=== PATIENT | female | born 1975 | race Caucasian/White ===

== ENCOUNTER → 2016-05-16 | Outpatient (CLI) | payer OTHER ==
[~2016-05-16] MED LIST: COPAXONE; GADOBUTROL 15 MMOL/15 ML (GADAVIST) VIAL IV ONE; HYDROCODONE; KCL20TCR; LIDOCAINE 1% 10 MG/ML 0.2 ML SYR (FOR IV START) ONE; MTC10T; PNT40TEC
--- NOTE | 2016-05-16 13:11 | Progress Note-Standard ---
Standard Progress Note Progress Notes/Assess & Plan Progress/Assessment & Plan 05/16/16 [id number] Called to MRI for difficult IV start. 24 g IV started in patient's right AC on second attempt. First attempt on patient's right foot infiltrated upon flushing. Opsite utilized to secure site. Report off to GLEN. MIRA ABAD CRNA May 16, 2016 13:11
--- NOTE | 2016-05-16 14:01 | Diagnostic Imaging Report ---
PROCEDURE: MR imaging of the brain with and without contrast. TECHNIQUE: Multiplanar, multisequence MR imaging of the brain was performed with and without contrast. 40 mL of Gadavist is administered intravenously. INDICATION: Multiple sclerosis. COMPARISON: No prior studies are available for comparison. FINDINGS: The diffusion sequence demonstrates no evidence of acute infarct or any diffusion restriction. There are multiple bilateral periventricular, deep and juxtacortical white matter T2 hyperintense lesions with numerous lesions that are confluent around the corpus callosum level perpendicular to the corpus callosum compatible with demyelinating lesions and the provided history of multiple sclerosis. There is a number of these lesions associated with T1 hypo-intense signal compatible with chronicity and associated encephalomalacia. There is no contrast enhancement in any of these lesions seen. There is no infratentorial lesion. The brainstem and the cerebellum appear unremarkable. The central vascular flow-voids appear grossly unremarkable. The pituitary gland is normal in size. No hyperkalemic or pineal region mass. No enhancing mass. There is a mucous retention cyst in the right maxillary sinus measuring 3 cm in size. No hydrocephalus. No extra-axial fluid collection is seen. IMPRESSION: Numerous supratentorial white matter lesions confluent in the corpus callosum and pericallosal white matter with multiple other juxtacortical lesions seen. No enhancing lesion. No infratentorial lesion is seen. The findings are compatible with the provided history of multiple sclerosis. Dictated by: Dictated on workstation # [id number]
== END ==
LOC: RAD 10:49
PROVIDERS: ATTEND Psychiatry & Neurology Neurology
DX: G35 Multiple sclerosis (principal)
CPT/HCPCS: 70553

== ENCOUNTER → 2016-10-15 | Outpatient (CLI) | payer OTHER ==
[~2016-10-15] MED LIST changes: -GADOBUTROL 15 MMOL/15 ML (GADAVIST) VIAL IV ONE; -LIDOCAINE 1% 10 MG/ML 0.2 ML SYR (FOR IV START) ONE
[2016-10-15 08:29] LABS: BASOPHILS # (AUTO) 0.1 10^3/uL (0.0-0.1); BASOPHILS % (AUTO) 1 % (0-10); EOSINOPHILS # (AUTO) 0.1 10^3/uL (0.0-0.3); EOSINOPHILS % (AUTO) 2 % (0-10); LYMPHOCYTES # (AUTO) 1.6 X 10^3 (1.0-4.0); LYMPHOCYTES % (AUTO) 18 % (12-44); MEAN CORPUSCULAR HEMOGLOBIN 27 PG (25-34); MEAN CORPUSCULAR HGB CONC 33 G/DL (32-36); MEAN CORPUSCULAR VOLUME 83 FL (80-99); MEAN PLATELET VOLUME 11.5 FL (7.4-10.4); MONOCYTES # (AUTO) 0.7 X 10^3 (0.0-1.0); MONOCYTES % (AUTO) 7 % (0-12); NEUTROPHILS # (AUTO) 6.5 X 10^3 (1.8-7.8); NEUTROPHILS % (AUTO) 73 % (42-75); PLATELET COUNT 268 10^3/uL (130-400); RED BLOOD COUNT 4.98 10^6/uL (4.35-5.85); RED CELL DISTRIBUTION WIDTH 14.2 % (10.0-14.5); WHITE BLOOD COUNT 8.9 10^3/uL (4.3-11.0)
[2016-10-15 08:50] LABS: ALBUMIN 3.9 GM/DL (3.2-4.5); BILIRUBIN,TOTAL 0.6 MG/DL (0.1-1.0); CALCIUM 9.3 MG/DL (8.5-10.1); CREATININE SERUM 1.03 MG/DL (0.60-1.30); ICTERUS 0.3 (-100-1.9); POTASSIUM 4.2 MMOL/L (3.6-5.0); TOTAL PROTEIN 7.1 GM/DL (6.4-8.2)
[2016-10-15 09:09] LABS: THYROID STIMULATING HORMONE 2.79 UIU/ML (0.35-4.94)
[2016-10-15 09:21] LABS: NEUTROPHILS % (MANUAL) 73 %
[2016-10-15 09:22] LABS: EOSINOPHILS % (MANUAL) 2 %; LYMPHOCYTES % (MANUAL) 16 %
== END ==
LOC: LAB 08:13
PROVIDERS: ATTEND Nurse Practitioner
DX: Z00.00 Encounter for general adult medical examination without abnormal findings (principal); Z13.6 Encounter for screening for cardiovascular disorders; I10 Essential (primary) hypertension; K21.9 Gastro-esophageal reflux disease without esophagitis; M19.90 Unspecified osteoarthritis, unspecified site; G35 Multiple sclerosis
CPT/HCPCS: 36415; 80053; 80061; 84443; 85007; 85027

== ENCOUNTER → 2016-12-16 | Outpatient (CLI) | payer OTHER ==
--- NOTE | 2016-12-16 11:32 | Diagnostic Imaging Report ---
INDICATION: Screening mammogram. COMPARISON: 11/20/2015. TECHNIQUE: Digital screening mammography was obtained with CAD. Three dimensional tomosynthesis was reviewed. FINDINGS: The breast tissue is primarily fatty. No masses or suspicious calcifications are identified. IMPRESSION: Stable screening mammogram. No malignancy. ACR BI-RADS Category 1: Negative. Result letter will be mailed to the patient. Note: At least 10% of breast cancer is not imaged by mammography. Dictated by: Dictated on workstation # [id number]
== END ==
LOC: RAD 08:06
PROVIDERS: ATTEND Nurse Practitioner
DX: Z12.31 Encounter for screening mammogram for malignant neoplasm of breast (principal)
CPT/HCPCS: 77067

== ENCOUNTER → 2017-10-13 | Outpatient (CLI) | payer OTHER ==
[2017-10-13 08:52] LABS: BASOPHILS # (AUTO) 0.1 10^3/uL (0.0-0.1); BASOPHILS % (AUTO) 2 % (0-10); EOSINOPHILS # (AUTO) 0.1 10^3/uL (0.0-0.3); EOSINOPHILS % (AUTO) 3 % (0-10); HEMATOCRIT 40 % (35-52); HEMOGLOBIN 14.1 G/DL (11.5-16.0); LYMPHOCYTES # (AUTO) 0.8 X 10^3 (1.0-4.0); LYMPHOCYTES % (AUTO) 20 % (12-44); MEAN CORPUSCULAR HEMOGLOBIN 30 PG (25-34); MEAN CORPUSCULAR HGB CONC 35 G/DL (32-36); MEAN CORPUSCULAR VOLUME 85 FL (80-99); MONOCYTES # (AUTO) 0.6 X 10^3 (0.0-1.0); MONOCYTES % (AUTO) 15 % (0-12); NEUTROPHILS # (AUTO) 2.4 X 10^3 (1.8-7.8); NEUTROPHILS % (AUTO) 62 % (42-75); PLATELET COUNT 189 10^3/uL (130-400); RED BLOOD COUNT 4.72 10^6/uL (4.35-5.85); RED CELL DISTRIBUTION WIDTH 14.2 % (10.0-14.5); WHITE BLOOD COUNT 3.8 10^3/uL (4.3-11.0)
[2017-10-13 09:12] LABS: ALANINE AMINOTRANSFERASE 121 U/L (0-55); ALBUMIN 3.6 GM/DL (3.2-4.5); ALKALINE PHOSPHATASE 81 U/L (40-136); BILIRUBIN,TOTAL 0.7 MG/DL (0.1-1.0); BUN/CREATININE RATIO 7; CARBON DIOXIDE 23 MMOL/L (21-32); CHLORIDE 108 MMOL/L (98-107); CHOLESTEROL 156 MG/DL (< 200); CREATININE SERUM 0.97 MG/DL (0.60-1.30); GFR ESTIMATED > 60; GLUCOSE 104 MG/DL (70-105); HDL CHOLESTEROL 37 MG/DL (40-60); SODIUM 139 MMOL/L (135-145); TOTAL PROTEIN 6.5 GM/DL (6.4-8.2); TRIGLYCERIDES 199 MG/DL (<150); VLDL CHOLESTEROL 40 MG/DL (5-40)
== END ==
LOC: LAB 08:37
PROVIDERS: ATTEND Nurse Practitioner
DX: Z00.00 Encounter for general adult medical examination without abnormal findings (principal)
CPT/HCPCS: 36415; 80053; 80061; 84443; 85025

== ENCOUNTER 2017-11-12 08:11 | Outpatient (RCR) | payer OTHER ==
[2017-11-12 08:54] LABS: BILIRUBIN,DIRECT 0.2 MG/DL (0.0-0.3); BILIRUBIN,INDIRECT 0.2 MG/DL; BILIRUBIN,TOTAL 0.4 MG/DL (0.1-1.0); TOTAL PROTEIN 6.9 GM/DL (6.4-8.2)
== END 2017-11-25 | disposition home or self-care (01) ==
LOC: LAB 08:11
PROVIDERS: ATTEND Psychiatry & Neurology Neurology
DX: G35 Multiple sclerosis (principal)
CPT/HCPCS: 36415; 80076

== ENCOUNTER 2017-12-16 08:53 | Outpatient (RCR) | payer OTHER ==
[2017-12-16 09:32] LABS: BILIRUBIN,DIRECT 0.2 MG/DL (0.0-0.3); BILIRUBIN,INDIRECT 0.2 MG/DL; BILIRUBIN,TOTAL 0.4 MG/DL (0.1-1.0); TOTAL PROTEIN 6.6 GM/DL (6.4-8.2)
== END 2017-12-26 | disposition home or self-care (01) ==
LOC: LAB 08:53
PROVIDERS: ATTEND Psychiatry & Neurology Neurology
DX: G35 Multiple sclerosis (principal)
CPT/HCPCS: 36415; 80076

== ENCOUNTER → 2018-02-27 | Outpatient (CLI) | payer OTHER ==
--- NOTE | 2018-02-27 17:26 | Diagnostic Imaging Report ---
INDICATION: Routine screening. Comparison is made with prior mammograms from 12/16/2016 and 11/20/2015. 2-D and 3-D bilateral screening mammography was performed with computer-aided detection (CAD) system. FINDINGS: Scattered fibroglandular densities are identified bilaterally. The parenchymal pattern is stable. No mass or malignant-appearing microcalcifications are seen. The axillae are unremarkable. IMPRESSION: No mammographic features suspicious for malignancy are identified. ACR BI-RADS Category 1: Negative. Result letter will be mailed to the patient. Note: At least 10% of breast cancer is not imaged by mammography. Dictated by: Dictated on workstation # [id number]
== END ==
LOC: RAD 08:37
PROVIDERS: ATTEND Nurse Practitioner
DX: Z12.31 Encounter for screening mammogram for malignant neoplasm of breast (principal)
CPT/HCPCS: 77067

== ENCOUNTER → 2018-04-09 | Outpatient (CLI) | payer OTHER ==
[2018-04-09 08:47] LABS: ALBUMIN 3.9 GM/DL (3.2-4.5); BILIRUBIN,TOTAL 0.4 MG/DL (0.1-1.0); CALCIUM 9.3 MG/DL (8.5-10.1); CREATININE SERUM 1.01 MG/DL (0.60-1.30); POTASSIUM 4.1 MMOL/L (3.6-5.0); TOTAL PROTEIN 6.7 GM/DL (6.4-8.2)
== END ==
LOC: LAB 08:15
PROVIDERS: ATTEND Internal Medicine
DX: R74.8 Abnormal levels of other serum enzymes (principal)
CPT/HCPCS: 36415; 80053; 80061

== ENCOUNTER 2018-12-31 10:09 | Outpatient (RCR) | payer OTHER | END 2019-01-03 | disposition home or self-care (01) | DX: R10.31 Right lower quadrant pain (principal); R10.12 Left upper quadrant pain ==

== ENCOUNTER 2019-01-13 10:36 | Outpatient (RCR) | payer OTHER | END 2019-04-13 | disposition home or self-care (01) | DX: R10.31 Right lower quadrant pain (principal); R10.12 Left upper quadrant pain ==

== ENCOUNTER → 2019-03-03 | Outpatient (CLI) | payer OTHER ==
--- NOTE | 2019-03-03 09:03 | Diagnostic Imaging Report ---
INDICATION: Screening. TECHNIQUE: The current study was also evaluated with a Computer Aided Detection (CAD) system. 3D Tomographic imaging was also performed. 3D tomosynthesis was performed and reviewed. COMPARISON: 02/27/2018, 12/16/2016, and 11/20/2015. FINDINGS: There are scattered fibroglandular densities bilaterally. There is no dominant mass, spiculated lesion, or suspicious calcification identified. The skin, nipples, and axillae are unremarkable. IMPRESSION: Negative. ACR BI-RADS Category 1: Negative. Result letter will be mailed to the patient. Note: At least 10% of breast cancer is not imaged by mammography. Dictated by: Dictated on workstation # [id number]
== END ==
LOC: RAD 07:31
PROVIDERS: ATTEND Obstetrics & Gynecology
DX: Z12.31 Encounter for screening mammogram for malignant neoplasm of breast (principal)
CPT/HCPCS: 77067

== ENCOUNTER → 2019-06-18 | Outpatient (CLI) | payer OTHER ==
[2019-06-18 08:22] LABS: BASOPHILS # (AUTO) 0.1 10^3/uL (0.0-0.1); BASOPHILS % (AUTO) 1 % (0-10); EOSINOPHILS # (AUTO) 0.1 10^3/uL (0.0-0.3); EOSINOPHILS % (AUTO) 2 % (0-10); HEMATOCRIT 42 % (35-52); HEMOGLOBIN 13.9 G/DL (11.5-16.0); LYMPHOCYTES # (AUTO) 1.4 X 10^3 (1.0-4.0); LYMPHOCYTES % (AUTO) 23 % (12-44); MEAN CORPUSCULAR HEMOGLOBIN 29 PG (25-34); MEAN CORPUSCULAR HGB CONC 33 G/DL (32-36); MEAN CORPUSCULAR VOLUME 89 FL (80-99); MEAN PLATELET VOLUME 11.8 FL (7.4-10.4); MONOCYTES # (AUTO) 0.5 X 10^3 (0.0-1.0); MONOCYTES % (AUTO) 8 % (0-12); NEUTROPHILS # (AUTO) 3.9 X 10^3 (1.8-7.8); NEUTROPHILS % (AUTO) 66 % (42-75); PLATELET COUNT 233 10^3/uL (130-400); RED CELL DISTRIBUTION WIDTH 13.7 % (10.0-14.5); WHITE BLOOD COUNT 5.9 10^3/uL (4.3-11.0)
[2019-06-18 08:46] LABS: ALBUMIN 3.8 GM/DL (3.2-4.5); BILIRUBIN,TOTAL 0.5 MG/DL (0.1-1.0); CALCIUM 9.3 MG/DL (8.5-10.1); CREATININE SERUM 1.06 MG/DL (0.60-1.30); POTASSIUM 4.1 MMOL/L (3.6-5.0); TOTAL PROTEIN 6.6 GM/DL (6.4-8.2)
== END ==
LOC: LAB 08:03
PROVIDERS: ATTEND Nurse Practitioner
DX: Z00.00 Encounter for general adult medical examination without abnormal findings (principal)
CPT/HCPCS: 36415; 80053; 80061; 84443; 85025

== ENCOUNTER → 2019-09-21 | Outpatient (CLI) | payer OTHER ==
--- NOTE | 2019-09-21 09:42 | Diagnostic Imaging Report ---
INDICATION: Fall. 3 views of the left wrist were obtained FINDINGS: The alignment is normal. There is no fracture or dislocation. Soft tissues are unremarkable. IMPRESSION: No acute fracture or dislocation. Dictated by: Dictated on workstation # [id number]
== END ==
LOC: RAD 08:59
PROVIDERS: ATTEND Nurse Practitioner
DX: M25.532 Pain in left wrist (principal); W19.XXXA Unspecified fall, initial encounter
CPT/HCPCS: 73110

== ENCOUNTER → 2020-03-06 | Outpatient (CLI) | payer OTHER ==
--- NOTE | 2020-03-06 11:40 | Diagnostic Imaging Report ---
INDICATION: Routine screening. COMPARISON: 03/03/2019 and 02/27/2018. TECHNIQUE: 2D and 3D bilateral screening mammography was performed with CAD. FINDINGS: Both breasts are primarily involutional. The parenchymal pattern is stable. No mass or malignant appearing microcalcifications are identified. The axillae are unremarkable. IMPRESSION: No mammographic features suspicious for malignancy are identified. ACR BI-RADS Category 1: Negative. Result letter will be mailed to the patient. Note: At least 10% of breast cancer is not imaged by mammography. Dictated by: Dictated on workstation # [id number]
== END ==
LOC: RAD 10:00
PROVIDERS: ATTEND Obstetrics & Gynecology
DX: Z12.31 Encounter for screening mammogram for malignant neoplasm of breast (principal)
CPT/HCPCS: 77063; 77067

== ENCOUNTER → 2021-03-14 | Outpatient (CLI) | payer OTHER ==
--- NOTE | 2021-03-14 11:42 | Diagnostic Imaging Report ---
INDICATION: Routine screening. Comparison is made with prior mammogram from 03/06/2020 and 03/03/2019. 2-D and 3-D bilateral screening mammography was performed with CAD. Scattered fibroglandular densities are identified bilaterally. No mass or malignant-appearing microcalcifications are seen. Axillae are unremarkable. IMPRESSION: BI-RADS Category 1 No mammographic features suspicious for malignancy are identified. ACR BI-RADS Category 1: Negative. Result letter will be mailed to the patient. Note: At least 10% of breast cancer is not imaged by mammography. Dictated by: Dictated on workstation # [id number]
== END ==
LOC: RAD 10:00
PROVIDERS: ATTEND Obstetrics & Gynecology
DX: Z12.31 Encounter for screening mammogram for malignant neoplasm of breast (principal)
CPT/HCPCS: 77063; 77067

== ENCOUNTER → 2022-09-05 | Outpatient (CLI) | payer BC, OTHER ==
--- NOTE | 2022-09-05 17:02 | Diagnostic Imaging Report ---
INDICATION: Routine screening. COMPARISON: Prior mammograms from 03/14/2021 and 03/06/2020. EXAMINATION: 2D and 3D bilateral screening mammography was performed with CAD. The current study was also evaluated with a Computer Aided Detection (CAD) system. FINDINGS: Both breasts are primarily involutional. The parenchymal pattern appears stable. No mass or malignant-appearing microcalcifications are identified. Axillae are unremarkable. IMPRESSION: No mammographic features suspicious for malignancy are identified. ACR BI-RADS Category 1: Negative. Result letter will be mailed to the patient. Note: At least 10% of breast cancer is not imaged by mammography. Dictated by: Dictated on workstation # [id number]
== END ==
LOC: RAD 11:30
PROVIDERS: ATTEND Nurse Practitioner Family
DX: Z12.31 Encounter for screening mammogram for malignant neoplasm of breast (principal)
CPT/HCPCS: 77063; 77067

== ENCOUNTER → 2022-12-06 | Outpatient (CLI) | payer BC ==
--- NOTE | 2022-12-06 13:16 | Diagnostic Imaging Report ---
PROCEDURE: CT left lower extremity without contrast. TECHNIQUE: Multiple contiguous axial images were obtained through the left lower extremity without the use of intravenous contrast. Sagittal and coronal reformations were then performed. Auto Exposure Controls were utilized during the CT exam to meet ALARA standards for radiation dose reduction. INDICATION: Left ankle pain after injury. COMPARISON: None FINDINGS: There is a small ossified cortical irregularity at the anterolateral aspect of the talus, may be from old anterior talofibular ligament injury. There is a cortical irregularity at the posterior aspect of the medial malleolus which may be from remote injury as well. There are mild degenerative changes in the ankle joint and cuneonavicular joints. There is a small well-corticated calcification dorsal to the distal navicular, which is thought to be from chronic injury as well although age indeterminate. The tendons and ligaments are not well evaluated by CT. No definite tear is seen. No focal muscular atrophy is seen. IMPRESSION: 1. Well-corticated calcification dorsal to the navicular, may represent an avulsion injury which is age indeterminate but thought most likely to be chronic. 2. Cortical irregularity at the lateral talus and medial malleolus is thought to be from remote injury. 3. Mild degenerative changes in the left ankle and midfoot. Dictated by: Dictated on workstation # [id number]
== END ==
LOC: RAD 11:45
PROVIDERS: ATTEND Nurse Practitioner Family
DX: S99.812A Other specified injuries of left ankle, initial encounter (principal); M19.072 Primary osteoarthritis, left ankle and foot; X58.XXXA Exposure to other specified factors, initial encounter
CPT/HCPCS: 73700

== ENCOUNTER 2023-01-04 11:43 | Emergency (ER) | payer BC ==
[~2023-01-04] VITALS: Ht 165 cm; Wt 181.4 kg
[2023-01-04] MEDS ORDERED: ATROPINE 1 MG/10 ML EMERGENCY SYRINGE INJ ONE (11:46)
[2023-01-04] MEDS ORDERED: EPINEPHrine 0.1 MG/ML 10 ML EMERGENCY SYR IJ ONE (11:46)
[2023-01-04] MEDS ORDERED: SODIUM BICARB 8.4% 50 MEQ/50 ML (ABBOTT) SYR INJ ONE (11:46)
--- NOTE | 2023-01-04 13:15 | ED CPR ---
HPI-CPR General Chief Complaint: Code Blue Stated Complaint: CODE BLUE Source of Information: EMS Exam Limitations: Physical Impairments History of Present Illness Date Seen by Provider: Jan 04, 2023 Time Seen by Provider: 11:45 Initial Comments Here by EMS with report of of witnessed cardiac arrest in their presence at 1118 today. Patient has history of significant multiple sclerosis and is currently in therapy for that. She sees a nurse practitioner locally. Apparently she called EMS for shortness of breath and on their arrival she was stating that she had fairly significant shortness of breath but also had increasing left-sided weakness that was worse than her typical and then she went unresponsive. EMS reports that she went into PEA and they established i-gel for breathing control and were unable to get IV and initiated IO access to the left tibia. Ultimately they did give multiple rounds of epinephrine and 1 amp of sodium bicarb and IV fluid. Despite all of that, patient remained in PEA. They did initially note end-tidal CO2 at 31 and did continue CPR until arrival to the emergency department at 1145. Initial Complaints: Collapsed, Dyspnea Paramedics Initial Findings: PED Bradycardia Pre Hospital Treatment: CPR/Thumper, Oxygen, Epinephrine (mg) (6), Sodium Bicarb (amps) (1) Allergies and Home Medications Allergies Coded Allergies: NKANo Known Allergies (Unverified Allergy, Mild, 08/11/08) adhesive (Unverified Allergy, Mild, 08/18/09) No Known Drug Allergies (Verified , 08/04/08) Patient Home Medication List Home Medication List Reviewed: Yes [Copaxone ] , (Reported) Entered as Reported by: JORGE MIN on 08/11/082003 Review of Systems Review of Systems Constitutional: see HPI Other Comments Patient unresponsive with CPR in progress Past Fcygzah-Pssvjb-Mjghzq Hx Patient Social History Tobacco Use?: No Smoking Status: Unknown if Ever Smoked Substance use?: Unable to obtain Alcohol Use?: Unable to obtain Pt feels they are or have been: Unable to obtain Past Medical History Neurological: Yes Multiple Sclerosis Reproductive Disorders: No Physical Exam Vital Signs Vital Signs - First Documented 01/04/23 11:45 Pulse 0 Resp 0 Pulse Ox 68 O2 Delivery Ambu Bag Capillary Refill : NONE Height, Weight, BMI Height: '" Weight: lbs. oz. kg; BMI Method: General Appearance: No Apparent Distress, WD/WN, Obese HEENT: Other (Was fixed and dilated) Respiratory: Other (Bilateral breath sounds with bagging) Cardiovascular: Bradycardia (On monitor but no pulse noted) Neurologic/Psychiatric: Other (Unresponsive with CPR in progress) Skin: Cool, Mottled Progress/Results/Core Measures Results/Orders Vital Signs/I&O 01/04/23 11:45 Pulse 0 Resp 0 B/P (MAP) Pulse Ox 68 O2 Delivery Ambu Bag Progress Progress Note : Progress Note Seen and evaluated on arrival by EMS. CPR continued. Initial pulse check noted no pulse and PEA on the monitor at 20-30. CPR reinitiated. We continued CPR for several rounds and gave multiple doses of epinephrine as well at his an amp of sodium bicarb. Fluids continued. IO lost to left tibia and replaced on right tibia with good draw and flush. We continued epinephrine via this site. Bedside ultrasound showed no significant cardiac activity on my interpretation. Despite all efforts, we are unable to establish viable cardiac activity and code was called at 1209. I did have discussions family with prior to and after code calling. 1239: I have spoken with both the corner and the educational program assistant corner. They will gather information. Integrated Marketing Intern is at bedside with the family for bereavement. Since patient has nurse practitioner as primary care provider, [employer] will need information for certificate signing. Ivan Chauhan, small business sales representative, educational program assistant corner, will gather information and provided Dr. Rahman. I did talk with the family about gathering meds. This will likely only be a sheet ironworker case for certificate and not for investigation as this is not unexpected in my opinion nor the sheet ironworker's opinion given patient's advanced multiple sclerosis and underlying medical condition. Her is Jasson Maddox and he can be reached at [phone]. Departure Impression Primary Impression: Cardiopulmonary arrest Disposition: 20 Condition: Departure-Patient Inst. Referrals: RICHARDSON HARE APRN (PCP/Family) Primary Care Physician VICKY ANAND MD Jan 04, 2023 13:15
== END 2023-01-04 14:35 | disposition expired ==
LOC: EDUNIT# 11:43 → ER 11:45
DX: I46.9 Cardiac arrest, cause unspecified (principal); G35 Multiple sclerosis
CPT/HCPCS: 99283